=== PATIENT | female | born 1930 | race Caucasian/White ===

== ENCOUNTER 2016-10-05 16:10 | Inpatient (IN) | payer OTHER, MEDICARE ==
[~2016-10-05] VITALS: Ht 165.1 cm; Wt 88.6 kg
[2016-10-20] MEDS ORDERED: LISI10TA3 PO (16:43)
[2016-10-20] MEDS ORDERED: SIMV40TA PO (16:43)
[2016-10-20] MEDS ORDERED: HYDR-4107 PO (16:43)
[2016-10-20] MEDS ORDERED: D31000TA PO (16:43)
[2016-10-20] MEDS ORDERED: XARE10TA PO (16:43)
[2016-10-20] MEDS ORDERED: D-10TAB (16:43)
[2016-10-20] MEDS ORDERED: MULTTAB67 PO (16:43)
[2016-10-24] MEDS ORDERED: ceFAZolin 2 GM PREMIX 50 ML IV SCH (06:15)
[2016-10-24] MEDS: TRANEXAMIC ACID INJ 860 MG in SODIUM CHLORIDE 0.9% INJ 100 ML IV SCH ×2 (06:15→08:20)
[2016-10-24] MEDS: POVIDONE IODINE 7.5% SCRUB 118 ML BOTTLE TOP SCH (06:15)
[2016-10-24] MEDS: EXPAREL PERI-ARTICULAR INJECTION (TOTAL VOL. 60 ML) P-ARTICULR SCH ×4 (06:15→08:19)
[2016-10-24] MEDS ORDERED: VANCOMYCIN 1000 MG/NS 250 ML (for <70 kg) IV SCH ×2 (06:15)
[2016-10-24] MEDS ORDERED: DICL1CAP3 PO (06:18)
[2016-10-24] MEDS ORDERED: SIMV20TA PO (06:18)
[2016-10-24] MEDS ORDERED: ACET-703 PO (06:18)
[2016-10-24] MEDS ORDERED: LISI-515 PO (06:18)
[2016-10-24] MEDS ORDERED: IRON18TA2 PO (06:20)
[2016-10-24 06:26] VITALS: BP 148/85; PULSE 76; RESP 18; TEMP 98; O2SAT 94
[2016-10-24] MEDS ORDERED: ACETAMINOPHEN 1000 MG/100 ML VIAL IV ONE (06:58)
[2016-10-24] MEDS ORDERED: FAMOTIDINE 20 MG/2 ML VIAL ONE (07:05)
[2016-10-24] MEDS ORDERED: MIDAZOLAM HCL 2 MG/2 ML VIAL ONE (07:05)
[2016-10-24] MEDS ORDERED: fentaNYL CITRATE 250 MCG/5 ML AMP ONE (07:10)
[2016-10-24] MEDS ORDERED: NEOSTIGMINE 3 MG/3 ML SYR IV ONE (07:33)
[2016-10-24] MEDS ORDERED: ONDANSETRON HCL 4 MG/2 ML VIAL IV PUSH ONE (07:33)
[2016-10-24] MEDS ORDERED: PROPOFOL 200 MG/20 ML AMP IV ONE (07:33)
[2016-10-24] MEDS ORDERED: PHENYLEPH/NS 1000 MCG/10 ML SYR IV ONE (07:33)
[2016-10-24] MEDS ORDERED: GENTAMICIN SULFATE 80 MG/2 ML VIAL IRRIGATION ONE (08:18)
--- NOTE | 2016-10-24 08:39 | MH ---
cc: AMANDA FRITZ DATE OF ADMISSION 10/24/2016 ADMISSION DIAGNOSIS Left hip osteoarthritis HISTORY This is an 86-year-old female with severe left hip arthritis. Despite conservative care, she is painful and symptomatic. She has had extensive conservative care which is outlined in the attached records. She now presents for surgical treatment. PAST MEDICAL HISTORY, SOCIAL HISTORY AND FAMILY HISTORY See attached notes. PHYSICAL EXAMINATION Average built female in moderate stress with a left hip. HEENT: Normocephalic, atraumatic. Pupils equal, round, reactive to light and accommodation. Extraocular motions intact. NECK: Supple. CHEST: Clear. HEART: Regular rate and rhythm. ABDOMEN: Soft and nontender with normoactive bowel sounds. MUSCULOSKELETAL: Left hip pain with range of motion especially with internal and external rotation. A mild flexion contracture seen. NEUROLOGIC AND VASCULAR: Examination is within normal limits. IMPRESSION Osteoarthritis left hip PLAN Left total hip replacement arthroplasty. CONSENT The risks of surgery including infection, bleeding, loss of motion, continued pain, need for further surgery, neurologic and vascular injury. The patient understands these issues and wishes to press on with surgery as outlined above. MD GILBERTO Ball/RUBÉN /8:20 PM /8:33 AM
--- NOTE | 2016-10-24 09:37 | PD.OP ---
cc: Reji Briggs MD Operative Report Date of Surgery: Oct 24, 2016 Preoperative Diagnosis: Osteoarthritis left hip, severe. Avascular necrosis left hip Postoperative Diagnosis: Same Procedure: Left total hip replacement arthroplasty, direct anterior exposure Anesthesia: Gen. Surgeon: Reji Briggs Relationship Advisor(s): FRANNY Chen Operation and Findings: EBL: 400 cc INDICATION: This patient presents with significant hip pain related to severe arthritis and suggestion of avascular necrosis.. Despite extensive conservative care this patient continues to be painful and now presents for surgical treatment. NOTE: Mel Chen PA-C was present for the entire surgical procedure as my airplane first officer. In my medical opinion her skill and care was necessary for the proper management of this patient. COMPONENTS: COMPANY: [employer] CUP: Combined Locks, 52 mm, 100 series, gription surface LINER: Altrx 32 mm, neutral STEM: Corail, size 11, standard offset, hydroxyapatite-coated HEAD: 32 mm, +5, 12/14 taper PROCEDURE: This patient was brought to the operating room and anesthetized in the supine position and positioned on the fracture table with both legs held extended. The left hip and leg was scrubbed with alcohol followed by Hibiclens followed by ChloraPrep and draped sterilely. Antibiotics were given within routine time window and a timeout was done. A 4 inch incision was made starting 2 cm distal and 2 cm lateral to the anterior superior iliac spine. The fascia salena was opened longitudinally. The interval between the fascia salena and the rectus was opened down to the capsule of the hip joint. Retractors were positioned allowing good visualization of the capsule. This was opened longitudinally and flaps were created. Stay sutures were utilized. Exposure was excellent. The neck was cut at the proper location using fluoroscopy as a guide. The head was removed. Deep retractors were positioned allowing good visualization of the acetabulum. Acetabulum was deepened down to the floor starting with a proper size reamer and reaming up to 51 mm. A trial was utilized. Fluoroscopy was used to check position and confirmed satisfactory alignment. The rim was reamed with a 52 mm reamer and the final cup was positioned in approximately 20 of anteversion and 40-45 of abduction. Position was satisfactory. A single hole eliminator was positioned followed by the final liner. The lifting hook was utilized. The leg was dropped to the floor, maximally externally rotated and brought across the midline. Retractors were positioned. A box osteotome was utilized followed by progressive broaching to the proper stem size. Trial reduction showed excellent alignment and fit. With 60 of external rotation the leg was dropped to the floor without evidence of anterior subluxation. We could see a small crack at the edge of the calcar anterior and medial. A super cable was placed around this in a cerclage fashion. The wound was irrigated. The final stem was inserted and was found to be very stable. The final reduction using the final head. Stability was as previously noted. Intraoperative x-rays were taken. The wound was irrigated copiously. Hemostasis was controlled. Local anesthesia was utilized. The capsule was repaired with #2 Tycron sutures. The fascia salena was repaired with running 0 PDS on a loop. Subcutaneous tissue was approximated with 2-0 Vicryl and skin with running intradermal 3-0 Vicryl followed by Steri-Strips. A sterile dressing was applied. The patient was awakened and taken to the recovery room in satisfactory condition. FINDINGS: There was evidence of avascular necrosis with loose articular cartilage in an area of delamination of the articular cartilage in the large area of the weightbearing dome. This measured approximately 1.5 x 1 cm. This is classic for avascular necrosis with delamination. Reji Briggs MD Oct 24, 2016 09:37
[2016-10-24] MEDS ORDERED: HYDR-3580 PO (09:39)
[2016-10-24] MEDS ORDERED: XARE10TA PO (09:39)
[2016-10-24] MEDS ORDERED: SODIUM CHLORIDE 0.9% FLUSH 5 ML FLUSH IVF PRN (09:45)
[2016-10-24] MEDS ORDERED: TEMAZEPAM 15 MG CAP PO PRN (09:45)
[2016-10-24] MEDS ORDERED: BISACODYL 10 MG SUPP PR PRN (09:45)
[2016-10-24] MEDS ORDERED: Post-op Orders (for Pharmacy) MISC XX ONE (09:45)
[2016-10-24] MEDS ORDERED: ALUMINUM/MAGNESIUM/SIMETH 30 ML CUP PO PRN (09:45)
[2016-10-24] MEDS ORDERED: ONDANSETRON HCL 4 MG/2 ML VIAL IVP PRN (09:45)
[2016-10-24] MEDS ORDERED: NALOXONE HCL 0.4 MG/ML AMP IV PRN (09:45)
[2016-10-24] MEDS ORDERED: MORPHINE SULFATE 8 MG/ML INJ IV PUSH PRN (09:45)
[2016-10-24] MEDS ORDERED: MORPHINE SULFATE 30 MG/30 ML PCA IV SCH (10:30)
[2016-10-24] MEDS: LACTATED RINGER'S 1000 ML INJ 1,000 ML IV SCH ×2 (10:30→23:30)
[2016-10-24] MEDS ORDERED: DO NOT ADM ANY ANTICOAGULANT DRUGS XX PRN (10:45)
[2016-10-24] MEDS ORDERED: *ONDANSETRON 4 MG VIAL PERIprocedural Use ONLY ONE (12:02)
[2016-10-24] MEDS ORDERED: WALKER WHEELS/F1 MIS (12:49)
[2016-10-24] MEDS ORDERED: MISC-163 (12:49)
--- NOTE | 2016-10-24 12:51 | HHI.FF ---
Face to Face Verification Diagnosis: (1) Left hip pain (2) Osteoarthritis of left hip Physical Therapy Gait training, Safety evaluation, Transfer training, bed to chair Hip: Total hip, Protocol: Left, Progress to weight bearing Left LE Weight Bearing: WB as tolerated Additional Instructions PT 5 days/wk for 2 weeks. WBAT Left LE. Anterior SHAN protocol. Walker for gait. LE strengthening. Nursing RN Days per Week: 2 x Week(s): 1 Dressing Changes: Do not change dressing Additional Instructions Vitals assessment, Dressing assessment - do not change unless saturated or significant erythema. Ok to shower pod#5 if kept sealed and dry. I have seen patient Shania Ellis on 10/24/16. My clinical findings support the need for the requested home health care services because: Limited ability to care for self High risk of falls I certify that my clinical findings support that this patient is homebound because: Post-op weakness Unsteady gait/balance Reji Briggs MD Oct 24, 2016 12:51
[2016-10-24 16:02] VITALS: BP 126/63; PULSE 80; RESP 17; TEMP 96.5; O2SAT 97
[2016-10-24 18:14] VITALS: O2SAT 97
[2016-10-24 20:00] VITALS: BP 140/66; PULSE 78; RESP 16; TEMP 97.8; O2SAT 98
[2016-10-24] MEDS: PRAVASTATIN SOD 40 MG TAB PO SCH (20:23)
[2016-10-24] MEDS: SODIUM CHLORIDE 0.9% FLUSH 5 ML FLUSH IVF SCH (20:24)
[2016-10-24] MEDS: PCA - TOTAL MG MORPHINE DELIVERED PER SHIFT SCH (22:00)
[2016-10-25] VITALS (8 sets, daily range): BP systolic 116–147; BP diastolic 61–70; PULSE 81–94; RESP 16–18; TEMP 96.7–99.8; O2SAT 96–98
[2016-10-25] MEDS: PCA - TOTAL MG MORPHINE DELIVERED PER SHIFT SCH (06:00)
[2016-10-25] MEDS: POVIDONE IODINE 7.5% SCRUB 118 ML BOTTLE TOP SCH (06:15)
--- NOTE | 2016-10-25 07:10 | RADRPT ---
EXAM DATE/TIME: 10/24/2016 08:03 [facility] COMPARISON: HIP LEFT (AP&LAT 2/3VWS) WO AP PELVIS, September 08, 2016, 13:58. INDICATIONS : Post-op total left hip arthroplasty. MEDICAL HISTORY : None. SURGICAL HISTORY : None. ENCOUNTER: Initial ACUITY: 1 day PAIN SCORE: Non-responsive. LOCATION: Left hip. CONCLUSION: Fluoroscopic image from left hip replacement. Jermaine Padron MD on October 25, 2016 at 7:08 Board Certified Radiologist. This report was verified electronically.
[2016-10-25 08:27] LABS: HEMATOCRIT 33.2 % (35.0-46.0); REVIEW FLAG FINAL
[2016-10-25] MEDS: LISINOPRIL 20 MG TAB PO SCH (09:42)
[2016-10-25] MEDS: RIVAROXABAN 10 MG TAB PO SCH (09:43)
[2016-10-25] MEDS: SODIUM CHLORIDE 0.9% FLUSH 5 ML FLUSH IVF SCH ×2 (09:43→22:26)
[2016-10-25] MEDS: LACTATED RINGER'S 1000 ML INJ 1,000 ML IV SCH (12:00)
--- NOTE | 2016-10-25 13:10 | PD.ORT.PN ---
Subjective Subjective Remarks Moderate left hip pain. Some thigh aching but no radiating leg pain. Sensation of abdominal fullness. Has yet to urinate since andrew novak'yamilex. Went for XRT earlier today. No other concerns. No CP or SOB. Objective Vitals Vital Signs Date Time Temp Pulse Resp B/P Pulse Ox O2 Delivery O2 Flow Rate FiO2 10/25/16 12:00 96.7 81 18 133/61 96 10/25/16 08:00 97.9 94 18 129/70 97 10/25/16 06:00 20 10/25/16 04:00 98.2 87 16 147/69 97 10/25/16 00:00 99.8 88 16 133/70 98 10/24/16 22:00 19 10/24/16 20:00 97.8 78 16 140/66 98 10/24/16 18:14 97 Nasal Cannula 2.00 10/24/16 16:02 96.5 80 17 126/63 97 10/24/16 16:00 97.8 68 16 149/85 96 Nasal Cannula 2 10/24/16 15:00 69 16 147/81 95 Nasal Cannula 2 10/24/16 14:00 68 16 146/80 95 Nasal Cannula 2 I/O 10/24/16 10/24/16 10/24/16 10/25/16 10/25/16 10/25/16 07:00 15:00 23:00 07:00 15:00 23:00 Intake Total 1700 ml 540 ml 240 ml Output Total 900 ml 750 ml 850 ml Balance 800 ml -210 ml -610 ml Intake Oral 240 ml 240 ml IV Total 300 ml Other 1700 ml Output Urine Total 100 ml 750 ml 850 ml Estimated Blood Loss 800 ml # Bowel Movements 0 0 Result Diagram: 10/25/16 07 Objective Remarks Laying in bed, No acute distress VSS LLE Dressing c/d/i, no drainage, mild ecchymosis, mild swelling thigh and calf supple, neg homans +motor at, +sens, +nvi Assessment & Plan Ortho Post Op Day #: 1 Problem List: Assessment and Plan pod#1 s/p L DARON, anterior approach (cable for calcar fx) 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 If she does not urinate in the next 3 hours may need bladder scan and straight cath. Had single dose of XRT today to prevent HO PT - 25% WBing LLE. Asad. Anterior daron protocol. Xarelto 10mg qd. Hold dressing changes unless saturated. D/C planning, home w [facility] sunday. Daughter is in town. Magy Rushing Oct 25, 2016 13:10
[2016-10-25] MEDS: ACETAMINOPHEN/HYDROcodone 325 MG/7.5 MG TAB PO PRN ×2 (17:30→22:26)
[2016-10-25] MEDS: PRAVASTATIN SOD 40 MG TAB PO SCH (22:25)
[2016-10-25] MEDS: DOCUSATE SODIUM 100 MG CAP PO SCH (22:26)
[2016-10-25] MEDS: MAGNESIUM HYDROXIDE SUSP 30 ML CUP PO PRN (22:26)
[2016-10-26] VITALS (7 sets, daily range): BP systolic 96–141; BP diastolic 51–63; PULSE 80–97; RESP 17–18; TEMP 96.1–99.6; O2SAT 92–99
[2016-10-26] MEDS: LACTATED RINGER'S 1000 ML INJ 1,000 ML IV SCH ×2 (00:30→13:16)
[2016-10-26] MEDS: ACETAMINOPHEN/HYDROcodone 325 MG/7.5 MG TAB PO PRN (05:41)
[2016-10-26] MEDS: POVIDONE IODINE 7.5% SCRUB 118 ML BOTTLE TOP SCH (06:15)
[2016-10-26] MEDS: SODIUM CHLORIDE 0.9% FLUSH 5 ML FLUSH IVF SCH ×2 (09:35→20:45)
[2016-10-26] MEDS: DOCUSATE SODIUM 100 MG CAP PO SCH ×2 (09:36→20:43)
[2016-10-26] MEDS: RIVAROXABAN 10 MG TAB PO SCH (09:36)
[2016-10-26] MEDS: MAGNESIUM HYDROXIDE SUSP 30 ML CUP PO PRN (09:36)
[2016-10-26] MEDS: LISINOPRIL 20 MG TAB PO SCH (09:36)
[2016-10-26] MEDS ORDERED: PROMETHAZINE HCL 25 MG TAB PO PRN (12:45)
[2016-10-26] MEDS ORDERED: TAMSULOSIN HCL 0.4 MG CAP PO ONE (12:45)
--- NOTE | 2016-10-26 12:49 | PD.ORT.PN ---
Subjective Subjective Remarks Moderate left hip pain but stable. No new complaints. No new radiating leg pains. Had cath placed yesterday. DC'd but has not voided yet. Episode of lightheadedness during PT. Also had significant nausea. Better after she was given Zofran. Very comfortable now. No other concerns. No CP or SOB or abd pain. Objective Vitals Vital Signs Date Time Temp Pulse Resp B/P Pulse Ox O2 Delivery O2 Flow Rate FiO2 10/26/16 12:00 96.4 80 18 115/55 97 10/26/16 08:15 99 21 10/26/16 08:00 97.5 86 18 122/63 92 10/26/16 04:05 96.3 81 18 96/52 95 10/26/16 00:40 96.1 88 18 96/51 95 10/25/16 20:00 99.5 89 18 116/65 96 10/25/16 16:50 97 Nasal Cannula 2.00 10/25/16 16:00 97.5 91 18 121/68 97 10/25/16 13:30 97 Nasal Cannula 2.00 I/O 10/25/16 10/25/16 10/25/16 10/26/16 10/26/16 10/26/16 07:00 15:00 23:00 07:00 15:00 23:00 Intake Total 240 ml 1200 ml 240 ml 240 ml Output Total 850 ml 700 ml 225 ml 200 ml Balance -610 ml 500 ml 15 ml 40 ml Intake Oral 240 ml 1200 ml 240 ml 240 ml Output Urine Total 850 ml 700 ml 225 ml 200 ml Bladder Scan Volume Amount 750 ml 750 ml # Bowel Movements 0 0 0 0 Result Diagram: 10/25/16 0722 Objective Remarks Laying in bed, Daughter present No acute distress VSS LLE Dressing c/d/i, no drainage, mild ecchymosis, mild swelling thigh and calf supple, neg homans +motor at, +sens, +nvi Assessment & Plan Ortho Post Op Day #: 2 Problem List: Assessment and Plan pod#2 s/p L SHAN, anterior approach (cable for calcar fx) Episode of dizzines, resolved. Hold lisinopril. Give Flomax 0.4mg now. Avoid 2 tabs Vidor every 4-6 hours. Continue on one tab [id number]. Monitor urine output after flomax given. If no urine output by 1400 then rescan. Did well w XRT yesterday. No further xrt necessary. PT - 25% WBing LLE. Walker. Anterior shan protocol. Xarelto 10mg qd. Hold dressing changes unless saturated. D/C planning, she prefers [facility] but likely needs to consider Rehab tomorrow or sunday. Magy Rushing Oct 26, 2016 12:49
[2016-10-26] MEDS: PRAVASTATIN SOD 40 MG TAB PO SCH (20:43)
[2016-10-27 00:10] VITALS: BP 134/60; PULSE 106; RESP 17; TEMP 98.8; O2SAT 99
[2016-10-27] MEDS: LACTATED RINGER'S 1000 ML INJ 1,000 ML IV SCH (02:32)
[2016-10-27 06:52] LABS: HEMATOCRIT 28.1 % (35.0-46.0); REVIEW FLAG FINAL
--- NOTE | 2016-10-27 07:44 | PD.ORT.PN ---
Subjective Subjective Remarks Doing better with urination. Staley catheter is out. Status post RT to the left hip Objective Vitals Vital Signs Date Time Temp Pulse Resp B/P Pulse Ox O2 Delivery O2 Flow Rate FiO2 10/27/16 00:10 98.8 106 17 134/60 99 10/26/16 20:15 99.6 97 17 141/63 97 10/26/16 16:00 97.2 88 18 118/60 98 10/26/16 12:00 96.4 80 18 115/55 97 10/26/16 08:15 99 21 10/26/16 08:00 97.5 86 18 122/63 92 I/O 10/26/16 10/26/16 10/26/16 10/27/16 10/27/16 10/27/16 07:00 15:00 23:00 07:00 15:00 23:00 Intake Total 240 ml 1200 ml 240 ml 1247 ml Output Total 200 ml 300 ml Balance 40 ml 900 ml 240 ml 1247 ml Intake Oral 240 ml 1200 ml 240 ml 120 ml IV Total 1127 ml Output Urine Total 200 ml 300 ml # Voids 3 2 # Bowel Movements 0 0 0 0 Result Diagram: 10/27/16 0540 Objective Remarks Laying in bed, No acute distress VSS LLE Dressing c/d/i, no drainage, mild ecchymosis, mild swelling thigh and calf supple, neg homans +motor at, +sens, +nvi Assessment & Plan Ortho Post Op Day #: 3 Problem List: Assessment and Plan pod#3 s/p L SHAN, anterior approach (cable for calcar stress fx) 25% weightbearing [place] for pain Xarelto for 25 days Hold dressing changes unless saturated. D/C planning, she prefers [facility] but likely needs to consider SNF today. E wound by physical therapy today. If she does great, she can consider going home today or tomorrow. If she does not do well, SNF today. Reji Briggs MD Oct 27, 2016 07:44
--- NOTE | 2016-10-27 07:49 | HHI.DS ---
Discharge Summary Admission Date Oct 24, 2016 at 05:42 Discharge Date: Oct 27, 2016 Admitting Diagnosis see below Diagnosis: (1) Left hip pain Diagnosis: Principal (2) Osteoarthritis of left hip Diagnosis: Principal Procedures Left total hip arthroplasty, Direct anterior approach (fixation of calcar) Brief History This is a 86 year old female patient with a long history of bilateral hip pain. She sought out medical evaluation and treatment when she began struggling with daily activities. Imaging studies were performed showing significant arthritis both hips. Conservative measures were pursued but she eventually had right total hip arthroplasty. She recovered well and began treating the left hip. Again she struggled for many months and eventually agreed to move forward with surgical treatment on the left. CBC/BMP: 10/27/16 0540 Significant Findings Laboratory Tests Test 10/25/16 10/27/16 07:22 05:40 Hemoglobin 11.3 GM/DL 9.8 GM/DL (11.6-15.3) (11.6-15.3) Hematocrit 33.2 % 28.1 % (35.0-46.0) (35.0-46.0) PE at Discharge Laying in bed, No acute distress VSS LLE Dressing c/d/i, no drainage, mild ecchymosis, mild swelling thigh and calf supple, neg homans +motor at, +sens, +nvi Hospital Course Surgical treatment was performed on the day of admission without complication. She recovered well in PACU and was transferred to the orthopaedic floor. Pain was controlled with IV and oral medications. DVT prophylaxis was initiated pod# 1. She received a single dose of XRT pod#1 due to history of HO opposite hip. She was straight-cath'd pod#1 due to urinary retention but resumed normal urination pod#2. She was compliant with physical therapy and all restrictions including 25% weightbearing due to fixation of a calcar fracture. After 3 days she was found to be stable and discharged to snf with instruction to continue limited weightbearing for 4 weeks and to continue a high fiber diet with attention to significant hydration. Pt Condition on Discharge: Stable Discharge Disposition: Discharge to SNF Discharge Instructions Diet Instructions: As Tolerated, No Restrictions, High Fiber Diet Activities You Can Perform: Partial Weight Bearing Activities to Avoid: Strenuous Activity Additional Activity Instruc.: 25% weightbearing left leg for 4 weeks New Medications: 3-in-1 Bedside Toilet (3-in-1 Bedside Toilet) 1 Mis Mis 1 EA .ROUTE DIRECTED #1 EA Walker with Front Wheels (Walker with Front Wheels) 1 Mis Mis 1 EA .ROUTE DIRECTED #1 Ref 0 EA Hydrocodone-Acetaminophen (Hydrocodone-Acetaminophen) 7.5-325 mg Tab 1 TAB PO Q4H PRN PAIN LESS THAN 5 ON SCALE #50 TAB Rivaroxaban (Xarelto) 10 Mg Tab 10 MG PO Q24H Prevent Blood Clot #25 TAB Continued Medications: Acetaminophen (Tylenol Extra Strength) 500 Mg Tab 500 MG PO Q4-6H PRN PAIN Ref 0 TAB Cholecalciferol (D3) 1,000 Unit Tab 1000 MG PO DAILY Ferrous Fumarate (Iron) 18 Mg Tab 36 MG PO HS Nutritional Supplement Ref 0 TAB Lisinopril (Lisinopril) 20 Mg Tab 20 MG PO DAILY #30 Ref 0 TAB Multiple Vitamin (Multiple Vitamin) 1 Tab 1 TAB PO DAILY Nutritional Supplement Ref 0 TAB Simvastatin (Simvastatin) 20 Mg Tab 20 MG PO HS Cholesterol Management #30 Ref 0 TAB Discontinued Medications: Diclofenac (Zorvolex) 18 Mg Cap 18 MG PO TID Pain Management Ref 0 CAP Magy Rushing Oct 27, 2016 07:49
--- NOTE | 2016-10-27 07:50 | HHI.DCPOC ---
Discharge Care Plan Diagnosis: (1) Left hip pain (2) Osteoarthritis of left hip Your Health Problems Are: Incision/Drains Urinary Difficulties Goals to Promote Your Health * To prevent worsening of your condition and complications * To maintain your health at the optimal level Directions to Meet Your Goals Take your medications as prescribed Follow your dietary instruction Follow activity as directed Keep your appointments as scheduled Take your immunizations and boosters as scheduled If your symptoms worsen call your PCP, if no PCP go to Urgent Care Center or Emergency Room Smoking is Dangerous to Your Health. Avoid second hand smoke Call the 24-hour hour crisis hotline for domestic abuse at Magy Rushing Oct 27, 2016 07:50
[2016-10-27 08:00] VITALS: BP 171/80; PULSE 93; RESP 16; TEMP 97.1; O2SAT 95
[2016-10-27] MEDS: RIVAROXABAN 10 MG TAB PO SCH (08:29)
[2016-10-27] MEDS: DOCUSATE SODIUM 100 MG CAP PO SCH (08:29)
[2016-10-27] MEDS: SODIUM CHLORIDE 0.9% FLUSH 5 ML FLUSH IVF SCH (09:00)
[2016-10-27] MEDS: MAGNESIUM HYDROXIDE SUSP 30 ML CUP PO PRN (11:48)
[2016-10-27] MEDS: ACETAMINOPHEN/HYDROcodone 325 MG/7.5 MG TAB PO PRN ×2 (11:48→16:21)
[2016-10-27 12:00] VITALS: BP 104/59; PULSE 102; RESP 16; TEMP 96; O2SAT 97
[2016-10-27 16:00] VITALS: BP 109/60; PULSE 92; RESP 16; TEMP 96; O2SAT 97
== END 2016-10-27 17:59 | DRG 470 ==
LOC: HSDI 10-24 05:42 → N06A 10-24 16:20
PROVIDERS: ADMIT Orthopaedic Surgery Orthopaedic Surgery of the Spine; ATTEND Orthopaedic Surgery Orthopaedic Surgery of the Spine
PROC: 0QH704Z Insertion of Internal Fixation Device into Left Upper Femur, Open Approach (ICD-10-PCS; 2016-10-24)
PROC: 0SRB0JA Replacement of Left Hip Joint with Synthetic Substitute, Uncemented, Open Approach (ICD-10-PCS; principal; 2016-10-24 07:16)
PROC: DW0 Radiation Therapy, Anatomical Regions, Beam Radiation (ICD-10-PCS; 2016-10-25)
PROC: 0T9B70Z Drainage of Bladder with Drainage Device, Via Natural or Artificial Opening (ICD-10-PCS; 2016-10-25)
DX: M16.12 Unilateral primary osteoarthritis, left hip (principal); M87.852 Other osteonecrosis, left femur; I10 Essential (primary) hypertension; R42 Dizziness and giddiness; R11.0 Nausea; E78.5 Hyperlipidemia, unspecified; Z96.641 Presence of right artificial hip joint; R33.9 Retention of urine, unspecified; M84.352A Stress fracture, left femur, initial encounter for fracture; Z85.3 Personal history of malignant neoplasm of breast; X58.XXXA Exposure to other specified factors, initial encounter; Y92.234 Operating room of hospital as the place of occurrence of the external cause
CPT/HCPCS: 73502; 76000; 77261; 77290; 77306; 77334; 77336; 77412; 77417; 77431; 85014; 85018; 86850; 86890; 86900; 86901; 86920; 94150; 99221; C1713; C1776; C9290; J0131; J0690; J1580; J2250; J2270; J2370; J2405; J2710; J3010; J3370; J7050; J7120